=== PATIENT | female | born 1935 | race Caucasian/White ===

== ENCOUNTER 2016-06-05 05:13 | Inpatient (IN) | payer OTHER ==
[~2016-06-05] VITALS: Ht 157.5 cm; Wt 76.1 kg
[~2016-06-05 05:13] MED LIST: CALTRATE 600 +1 EAC1 PO; CELEXA10 MG PO; CENTRUM SILVER1 EAC3 PO; CIPRO500 MG PO; CLARITIN,ALAVAR10 MG PO; COUMADIN1 MG PO; COUMADIN5 MG PO; DURICEF500 MG PO; EVISTA60 MG PO; FERROUS SULFAT325 MG PO; IRON325 M1 PO; KEFLEX500 MG PO; LORADAMED10 MG PO; LOSARTAN POTASS50 MG PO; MOBIC7.5 MG PO; NEXIUM20 MG PO; NEXIUM40 MG PO; NORVASC5 MG PO; OSTEO BI-FLEX1 EAC3 PO; OXYCODONE HCL5 MG PO; ROBAXIN500 MG PO; ROXICODONE5 MG PO; VITAMIN D2000 UNIT PO; XALATAN2.5 ML BOTH EYES
[2016-06-05 06:10] VITALS: BP 149/66
[2016-06-05 13:56] VITALS: BP 149/69
[2016-06-05 17:10] VITALS: BP 122/87
[2016-06-05 20:35] VITALS: BP 141/64
[2016-06-06 00:11] VITALS: BP 135/61
[2016-06-06 03:12] VITALS: BP 119/57
[2016-06-06 05:50] LABS: HEMATOCRIT 33.9 % (36.0-46.0); MCV 90.2 FL (83-99)
[2016-06-06 08:06] VITALS: BP 100/50
[2016-06-06 12:22] VITALS: BP 104/50
[2016-06-06 16:09] VITALS: BP 92/44
[2016-06-07 00:18] VITALS: BP 127/61
[2016-06-07 05:45] LABS: HEMATOCRIT 34.6 % (36.0-46.0); MCV 90.1 FL (83-99)
[2016-06-07 08:08] VITALS: BP 128/60
[2016-06-07 15:59] VITALS: BP 94/54
[2016-06-07 23:08] VITALS: BP 114/56
[2016-06-08 08:30] VITALS: BP 123/57
[2016-06-08] MEDS ORDERED: XARELTO10 MG PO (08:37)
[2016-06-08] MEDS ORDERED: HYDROCODON-ACE1 EAC7 PO (08:37)
[2016-06-08] MEDS ORDERED: CELECOXIB200 MG PO (08:37)
[2016-06-08 11:30] VITALS: BP 134/61
== END 2016-06-08 12:52 | DRG 470 ==
LOC: 3EAST 05:13 → 2SOUTH 05:13 → 3EAST 13:14
PROVIDERS: Orthopaedic Surgery
PROC: 0SR904A Replacement of Right Hip Joint with Ceramic on Polyethylene Synthetic Substitute, Uncemented, Open Approach (ICD-10-PCS; principal; 2016-06-05)
DX: M16.11 Unilateral primary osteoarthritis, right hip (principal); I10 Essential (primary) hypertension; F41.8 Other specified anxiety disorders; H40.9 Unspecified glaucoma; M81.0 Age-related osteoporosis without current pathological fracture; E55.9 Vitamin D deficiency, unspecified; Z96.651 Presence of right artificial knee joint; E66.9 Obesity, unspecified; Z68.30 Body mass index [BMI] 30.0-30.9, adult
CPT/HCPCS: 71010; 85014; 85018; J0131; J0690; J1170; J2405; J7050